=== PATIENT | female | born 1970 | race Caucasian/White ===

== ENCOUNTER 2017-01-23 17:49 | Emergency (ER) | payer OTHER ==
[2017-01-23] MEDS ORDERED: HYDROmorphone 2 MG/ML 1 ML SYRINGE IM STA (18:37)
--- NOTE | 2017-01-23 18:38 | ED ---
General Adult HPI - General Chief complaint: Back Pain/Injury Stated complaint: Back Pain Time Seen by Provider: 01/23/17 18:09 Source: patient, RN notes reviewed, old records reviewed Mode of arrival: EMS Limitations: no limitations - History of Present Illness Initial comments: This is a 46-year-old [id number] here chronic back pain. Patient's a transplant [place] where she is working on finding doctor's pain control doctors etc. Patient does have history of back surgery MRI through neurosurgeon in [place]. No recent trauma no nausea or vomiting, no fevers. No recent drug abuse, no recent IV drugs, no recent tattoos, no loss of bowel or bladder. Review of Systems ROS Statement: Those systems with pertinent positive or pertinent negative responses have been documented in the HPI. ROS Other: All systems not noted in ROS Statement are negative. Past Medical History Past Medical History: Asthma Additional Past Medical History / Comment(s): chronic back pain bipolar History of Any Multi-Drug Resistant Organisms: None Reported Past Surgical History: Adenoidectomy, Appendectomy, Cholecystectomy, Orthopedic Surgery, Tonsillectomy Additional Past Surgical History / Comment(s): uterine ablation Past Psychological History: Bipolar Smoking Status: Current every day smoker Past Alcohol Use History: None Reported Past Drug Use History: None Reported General Exam Limitations: no limitations General appearance: alert, in no apparent distress Head exam: Present: atraumatic, normocephalic, normal inspection Eye exam: Present: normal appearance, PERRL, EOMI. Absent: scleral icterus, conjunctival injection, periorbital swelling ENT exam: Present: normal exam, mucous membranes moist Neck exam: Present: normal inspection. Absent: tenderness, meningismus, lymphadenopathy Respiratory exam: Present: normal lung sounds bilaterally. Absent: respiratory distress, wheezes, rales, rhonchi, stridor Cardiovascular Exam: Present: regular rate, normal rhythm, normal heart sounds. Absent: systolic murmur, diastolic murmur, rubs, gallop, clicks GI/Abdominal exam: Present: soft, normal bowel sounds. Absent: distended, tenderness, guarding, rebound, rigid Extremities exam: Present: normal inspection, full ROM, normal capillary refill. Absent: tenderness, pedal edema, joint swelling, calf tenderness Back exam: Present: normal inspection Neurological exam: Present: alert, oriented X3, CN II-XII intact Psychiatric exam: Present: normal affect, normal mood Skin exam: Present: warm, dry, intact, normal color. Absent: rash Course Vital Signs 01/23/17 18:12 Temperature 97.8 F Pulse Rate 98 Respiratory 18 Rate Blood Pressure 108/61 O2 Sat by Pulse 98 Oximetry Medical Decision Making - Medical Decision Making 4060 minute EF reversion back pain, chronic acute on chronic back pain. Patient given pain control his emergency room, will see Dr. vernell Holden tomorrow in the office continue schedule outpatient therapy and pain control Disposition Clinical Impression: Mechanical back pain, Lumbar radiculopathy Disposition: HOME SELF-CARE Condition: Good Instructions: Chronic Back Pain (ED), Acute Low Back Pain (ED) Referrals: Mairna Tabor MD [Primary Care Provider] - 1-2 days
[2017-01-23] MEDS ORDERED: ONDANSETRON ODT 4 MG TAB PO STA (18:54)
[2017-01-23 19:15] VITALS: BP 128/75; PULSE 96; RESP 16; TEMP 97.5
== END 2017-01-23 19:13 | disposition home or self-care (01) ==
LOC: EC 17:49
DX: M54.16 Radiculopathy, lumbar region (principal); M54.9 Dorsalgia, unspecified; F17.200 Nicotine dependence, unspecified, uncomplicated
CPT/HCPCS: 99284; 96372; J1170

== ENCOUNTER 2017-01-25 14:37 | Emergency (ER) | payer OTHER ==
[2017-01-25 14:45] VITALS: TEMP 97.8
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
[2017-01-25 16:15] VITALS: BP 131/62; PULSE 89; RESP 16
== END 2017-01-25 16:23 | disposition home or self-care (01) ==
LOC: EC 14:37
DX: M54.5 Low back pain (principal); G89.29 Other chronic pain; Z59.0 Homelessness; F31.9 Bipolar disorder, unspecified; F41.9 Anxiety disorder, unspecified; F17.200 Nicotine dependence, unspecified, uncomplicated; Z79.899 Other long term (current) drug therapy; Z88.1 Allergy status to other antibiotic agents; Z88.6 Allergy status to analgesic agent; Z88.8 Allergy status to other drugs, medicaments and biological substances
CPT/HCPCS: 99284 ×2; 96361; 96374; 96375; 99283; J1200; J2765

== ENCOUNTER 2017-01-25 19:48 | Emergency (ER) | payer OTHER ==
[2017-01-25] MEDS ORDERED: SODIUM CHLORIDE 0.9% 1,000 ML IV ONE (21:44)
[2017-01-25] MEDS ORDERED: diphenhydrAMINE 50 MG/ML 1 ML VIAL IVP STA (21:44)
[2017-01-25] MEDS ORDERED: METOCLOPRAMIDE 5 MG/ML 2 ML VIAL IVP STA (21:44)
--- NOTE | 2017-01-25 21:50 | ED ---
Headache HPI - General Chief Complaint: Headache Stated Complaint: migraine Time Seen by Provider: 01/25/17 21:27 Source: RN notes reviewed Mode of arrival: ambulatory Limitations: no limitations - History of Present Illness Initial Comments: Patient is a 46-year-old female presents to the emergency room for evaluation of migraine headache. Patient states she has a history of migraine headaches. Patient states she was here earlier for acute on chronic low back pain. Patient states she was in the waiting room waiting to hear from a retirement facility and she began developing a migraine. Patient states this feels like her normal migraines. Patient states she's having 8 out of 10 headache with photophobia. Patient denies dizziness. Patient states she is nauseous but denies vomiting. Patient denies fevers or chills. Patient denies neck pain. Patient states her back pain has resolved. Patient denies changes in vision. Patient denies dizziness. Patient denies ringing in the ears. - Related Data Home Medications Medication Instructions Recorded Confirmed ARIPiprazole [Abilify] 15 mg PO DAILY 01/23/17 01/25/17 Albuterol Inhaler [Ventolin Hfa 1 puff INHALATION RT-Q4H PRN 01/23/17 01/25/17 Inhaler] Benztropine Mesylate [Cogentin] 1 mg PO QID 01/23/17 01/25/17 DULoxetine HCL [Cymbalta] 60 mg PO DAILY 01/23/17 01/25/17 Gabapentin [Neurontin] 800 mg PO TID 01/23/17 01/25/17 Propranolol [Inderal] 20 mg PO TID 01/23/17 01/25/17 Topiramate [Topamax] 200 mg PO BID 01/23/17 01/25/17 Allergies Allergy/AdvReac Type Severity Reaction Status Date / Time clarithromycin [From Biaxin] Allergy Rash/Hives Verified 01/25/17 21:40 ketorolac [From Toradol] Allergy Rash/Hives Verified 01/25/17 21:40 levofloxacin [From Levaquin] Allergy Rash/Hives Verified 01/25/17 21:40 sumatriptan [From Imitrex] Allergy Anaphylaxis Verified 01/25/17 21:40 tramadol Allergy Rash/Hives Verified 01/25/17 21:40 Review of Systems ROS Statement: Those systems with pertinent positive or pertinent negative responses have been documented in the HPI. ROS Other: All systems not noted in ROS Statement are negative. Past Medical History Past Medical History: Asthma Additional Past Medical History / Comment(s): chronic back pain bipolar migraines History of Any Multi-Drug Resistant Organisms: None Reported Past Surgical History: Adenoidectomy, Appendectomy, Cholecystectomy, Orthopedic Surgery, Tonsillectomy Additional Past Surgical History / Comment(s): uterine ablation Past Psychological History: Anxiety, Bipolar, Depression Smoking Status: Current every day smoker Past Alcohol Use History: None Reported Past Drug Use History: None Reported General Exam - General Exam Comments Initial Comments: Laying in exam room, no acute distress. Limitations: no limitations General appearance: alert, in no apparent distress Head exam: Present: atraumatic, normocephalic, normal inspection Eye exam: Present: normal appearance ENT exam: Present: normal exam Respiratory exam: Present: normal lung sounds bilaterally. Absent: respiratory distress Cardiovascular Exam: Present: regular rate, normal rhythm, normal heart sounds Extremities exam: Present: normal inspection Back exam: Present: normal inspection Neurological exam: Present: alert, oriented X3, CN II-XII intact, normal gait Expanded Patient oriented to: Present: person, place, time Speech: Present: fluid speech Cranial nerves: EOM's Intact: Normal, Facial Sensation: Normal Sensory exam: Upper Extremity Light Touch: Normal, Lower Extremity Light Touch: Normal Motor strength exam: RUE: 5, LUE: 5, RLE: 5, LLE: 5 Psychiatric exam: Present: normal affect, normal mood Skin exam: Present: warm, dry, intact, normal color. Absent: rash Course Vital Signs 01/25/17 01/25/17 20:40 23:14 Temperature 98.6 F 97.6 F Pulse Rate 107 H 98 Respiratory 20 18 Rate Blood Pressure 112/67 110/57 O2 Sat by Pulse 96 97 Oximetry Medical Decision Making - Medical Decision Making Patient is a 46-year-old female presents to the emergency room for evaluation of migraine headache. Patient states this feels like her normal migraine headaches. Patient has no neuro deficits. Patient was given Reglan and Benadryl and states that her headache is improved. Patient be discharged home and advised follow-up with her primary care provider. Patient states she understands everything that was discussed with her. Return parameters discussed. Case discussed with Dr. Aranda. Disposition Clinical Impression: Migraine Disposition: HOME SELF-CARE Condition: Good Instructions: Acute Headache (ED) Additional Instructions: Take at home medications as needed. Drink plenty of water. Please follow up with primary care provider in 1-2 days. If any new symptom arises or symptoms worsen, return to ER as soon as possible. Referrals: Marina Tabor MD [Primary Care Provider] - 1-2 days Time of Disposition: 23:12
[2017-01-25 23:15] VITALS: BP 110/57; PULSE 98; RESP 18; TEMP 97.6
== END 2017-01-25 23:25 | disposition home or self-care (01) ==
LOC: EC 19:48
DX: G43.909 Migraine, unspecified, not intractable, without status migrainosus (principal); M54.5 Low back pain; G89.29 Other chronic pain; F31.9 Bipolar disorder, unspecified; F41.9 Anxiety disorder, unspecified; F17.200 Nicotine dependence, unspecified, uncomplicated; Z79.899 Other long term (current) drug therapy; Z88.1 Allergy status to other antibiotic agents; Z88.6 Allergy status to analgesic agent; Z88.8 Allergy status to other drugs, medicaments and biological substances
CPT/HCPCS: 99283; 96374; 96375; 96361; J1200; J2765